=== PATIENT | male | born 1940 | race Caucasian/White ===

== ENCOUNTER 2021-07-04 10:16 | Emergency (ER) | payer MEDICARE, MEDICAID ==
[~2021-07-04] VITALS: Ht 167.6 cm; Wt 61.4 kg
[~2021-07-04 10:16] MED LIST: AMIO200T67 PO; ASPI-1144 PO; ATOR20TA66 PO; CARV6.253 PO; FERR325T29 PO; LISI10TA27 PO; TICA90TA PO
--- NOTE | 2021-07-04 11:07 | NUR ---
spoke with [facility] for clarification on pt's event. per staff, pt was having a bm in the restroom alone. staff member walked into bathroom and noted pt to be "rigid and shaking" staff member believed this to be a seizure. per staff, pt did not lose conciousness, did not fall of toilet. informed.
--- NOTE | 2021-07-04 11:09 | NUR ---
lab at bedside.
[2021-07-04 11:21] LABS: BASOPHILS % (AUTO) 0.4 % (0-1); EOSINOPHILS % (AUTO) 0.8 % (0-6); HEMATOCRIT 33.5 % (42.0-52.0); HEMOGLOBIN 11.4 g/dl (14.0-17.9); LYMPHOCYTES # (AUTO) 0.2 X10'3 (1.1-4.8); LYMPHOCYTES % (AUTO) 4.4 % (21-51); MEAN CORPUSCULAR HEMOGLOBIN 30.2 PG (27.0-31.0); MEAN CORPUSCULAR HGB CONC 33.9 g/dL (33.0-36.5); MEAN CORPUSCULAR VOLUME 88.9 FL (78-98); MEAN PLATELET VOLUME 8.2 FL (7.4-10.4); MONOCYTES # (AUTO) 0.4 X10'3 (0-0.9); MONOCYTES % (AUTO) 6.8 % (2-12); NEUTROPHILS # (AUTO) 4.7 X10'3 (1.8-7.7); NEUTROPHILS % (AUTO) 87.6 % (42-75); PLATELET COUNT 286 X10'3 (140-440); RED BLOOD COUNT 3.77 X10'6 (4.70-6.10); RED CELL DISTRIBUTION WIDTH 14.3 % (11.5-14.5); WHITE BLOOD COUNT 5.3 X10'3 (4.5-11.0)
[2021-07-04 11:45] LABS: ALANINE AMINOTRANSFERASE 21 U/L (12-78); ALBUMIN 2.6 G/DL (3.4-5.0); ALBUMIN/GLOBULIN RATIO 0.8 (1.1-1.5); ALKALINE PHOSPHATASE 62 IU/L (46-116); ANION GAP 11 (8-16); ASPARTATE AMINO TRANSFERASE 27 U/L (10-37); BILIRUBIN,TOTAL 1.5 MG/DL (0.1-1.0); BLOOD UREA NITROGEN 23 MG/DL (7-18); BUN/CREATININE RATIO 17.7 (5.4-32.0); CALCIUM 8.1 MG/DL (8.5-10.1); CHLORIDE 106 MMOL/L (99-107); GLUCOSE 92 MG/DL (70-104); POTASSIUM 3.5 MMOL/L (3.5-5.1); SODIUM 142 MMOL/L (135-145); TOTAL CARBON DIOXIDE 25.1 MMOL/L (24-32); TOTAL PROTEIN 5.8 G/DL (6.4-8.2); eGFR 53 ML/MIN
--- NOTE | 2021-07-04 12:40 | NUR ---
spoke with [facility] about pt discharge. nurse reports that dr. lamas asked her for a "head ct and mri for new onset seizures". dr. rider informed. no new orders at this time. dr. rider was not contacted by dr. lamas.
--- NOTE | 2021-07-04 13:18 | NUR ---
pt resting in bed, no distress. no needs at this time.
[2021-07-04 15:30] VITALS: BP 126/62
[2021-07-05] MEDS ORDERED: AMIO200T61 PO (12:32)
[2021-07-05] MEDS ORDERED: CARV6.253 PO (12:32)
[2021-07-05] MEDS ORDERED: TICA90TA2 PO (12:32)
== END 2021-07-04 16:05 | disposition home or self-care (01) ==
LOC: ER 10:17
DX: G20 Parkinson's disease (principal); R56.9 Unspecified convulsions; R41.0 Disorientation, unspecified; E78.00 Pure hypercholesterolemia, unspecified; I10 Essential (primary) hypertension; I25.2 Old myocardial infarction; Z98.890 Other specified postprocedural states; Z79.82 Long term (current) use of aspirin; Z79.899 Other long term (current) drug therapy
CPT/HCPCS: 36415; 80053; 83735; 85025; 99285